=== PATIENT | male | born 1935 | race African-American/Black ===

== ENCOUNTER 2018-01-21 20:54 | Emergency (ER) | payer MEDICARE, OTHER ==
[~2018-01-21] VITALS: Ht 177.8 cm; Wt 76.2 kg
--- NOTE | 2018-01-21 21:42 | PHYS DOC ---
Adult General Chief Complaint Chief Complaint: MECHANICAL FALL HPI HPI 82 y/o male presents to ER via POV for evaluation after a fall today. 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 Patient denies any loss of consciousness. Patient has complaints of left side forehead pain with abrasions. Patient reports in the past couple of hours he has also developed some left side rib/muscle ache which increases with repositioning of lt upper extremity. Pt denies having any symptoms prior to fall. He reports he has history of spinal stenosis which cause weakness into his left side which led to him slipping. Patient denies any chest pain, shortness of air, cough, vomiting, or dizziness. Patient's Cely is at bedside denies patient with any confusion or change in mental status. He reports she took 2 Advil at 4:30 PM which has improved his pain. Patient reports he takes 81 mg aspirin 5 times per week denying any aspirin today. Patient denies any neck, back, or abdominal pain. She denies any injury to bilateral lower extremities. Patient reports he has eaten since the fall denying any vomiting. Review of Systems Review of Systems Constitutional: Denies lethargy or weakness Eyes: Denies change in visual acuity, photosensitivity, or eye pain [] HENT: Reports lt forehead injury- denies nosebleed Respiratory: Denies cough or shortness of breath [] Cardiovascular: Denies chest pain. Reports left lateral rib and muscle pain which increases with repositioning/ROM of left upper extremity GI: Denies abdominal pain, nausea, vomiting, bloody stools or diarrhea [] : Denies dysuria or hematuria. Denies incontinence of bowel or bladder Musculoskeletal: Denies back/neck pain or joint pain [] Integument: Reports abrasion left forehead with swelling at site Neurologic: Denies dizziness/lightheadedness or sensory changes. Patient reports history of left-sided weakness from spinal stenosis denying any acute change All other systems were reviewed and found to be within normal limits, except as documented in this note. Allergies Allergies Allergies Coded Allergies Type Severity Reaction Last Updated Verified No Known Drug Allergies 01/21/18 No Physical Exam Physical Exam Constitutional: Well developed, well nourished, no acute distress, non-toxic appearance. Steady gait. Clear speech. Managed Care Specialist equal bilateral HENT: Normocephalic, abrasion lt forehead above brow line- swelling at site with no active bleeding/ecchymosis, bilateral ears normal, oropharynx moist, nose normal. No sinus crepitus. Pt had reported he had tooth next to his lt front tooth was broke partially during fall- he denies oral pain. On exam no other loose teeth or other oral injury. No bleeding/swelling at site of fx'd tooth and pt denies tenderness on palp. Eyes: 3mm PERRLA, EOMI- no eye pain with movements, no nystagmus, conjunctiva normal, no discharge. [] Neck: Normal range of motion, no tenderness-no midline cervical tenderness or palpable deformity, supple, no stridor. Trachea midline Cardiovascular:Heart rate regular rhythm, no murmur [] Lungs & Thorax: Bilateral breath sounds clear to auscultation. Respirations equal and nonlabored. Tender to palp. lt lateral ribs just below axillary- no visible injury or palpable deformity/crepitus Abdomen: Bowel sounds normal, soft-or distention or rigidity, no tenderness, no masses, no pulsatile masses. [] Skin: Warm, dry, no erythema, no rash. [] Back: No tenderness-no midline spinal tenderness or palpable deformity. No visible injury on back. No CVA tenderness. [] Extremities: No tenderness, no cyanosis, no clubbing, ROM intact, no edema. [] Neurologic: Alert and oriented X 3, normal motor function, normal sensory function, no focal deficits noted. [] Psychologic: Affect normal, judgement normal, mood normal. [] Current Patient Data Vital Signs Vital Signs Date Time Temp Pulse Resp B/P (MAP) Pulse Ox O2 Delivery O2 Flow Rate FiO2 01/21/18 23:30 81 18 99 01/21/18 21:27 98.1 184/88 (120) Room Air 98.1 EKG EKG EKG obtained 01/21/18 at [address] Torres Sinus rhythm Rate 73 No STEMI Radiology/Procedures Radiology/Procedures PROCEDURE: CT HEAD AND CERVICAL SPINE WO CT HEAD AND CERVICAL SPINE WO Date: 01/21/2018 9:33 PM Clinical Indication: fall hitting left forehead Comparison: None. Technique: 5 mm axial tomographic images were obtained of the head without contrast. These were viewed on brain and bone windows. Noncontrast CT of the cervical spine was performed. Sagittal and coronal reformats were performed and evaluated. HEAD FINDINGS: Moderate generalized cerebral and cerebellar volume loss. Mild nonspecific periventricular hypoattenuation, most commonly seen with chronic small vessel ischemic disease. No intra- or extra-axial mass or fluid collection. No acute hemorrhage. The ventricles are normal in size, shape, and morphology. The isaac-white matter junction is normal. The basilar cisterns are patent. Left frontal scalp small hematoma. Mild left maxillary sinus mucosal thickening. The visualized portions of the orbits and globes are normal. The mastoid air cells are clear. No aggressive osseous lesion or fracture. CERVICAL SPINE FINDINGS: The cervical spine is normally aligned. No acute fracture. Incomplete C1 posterior arch, likely congenital. No aggressive lytic or blastic osseous lesions. Moderate multilevel degenerative disc space height loss. Multilevel at least moderate spinal canal stenosis secondary to disc protrusions and marginal osteophytes. Congenitally small cervical spinal canal. Multilevel severe neuroforaminal narrowing secondary to uncovertebral arthrosis. Multilevel moderate facet arthrosis. The thyroid gland is normal. No cervical lymphadenopathy. Bilateral carotid atherosclerosis. The visualized aerodigestive tract is normal. The visualized portions of the lungs are clear. IMPRESSION: 1. No acute intracranial process. 2. Moderate cerebral volume loss. Mild chronic small vessel ischemic disease. 3. No acute fracture or dislocation. 4. Moderate to severe degenerative cervical spondylosis. 5. Mild left maxillary mucosal thickening. 6. Left frontal scalp small hematoma. No underlying osseous abnormality. PQRS Compliance Statement: One or more of the following individualized dose reduction techniques were utilized for this examination: 1. Automated exposure control 2. Adjustment of the mA and/or kV according to patient size 3. Use of iterative reconstruction technique Electronically signed by: Jian Jalloh MD (01/21/2018 11:36 PM) [facility] DICTATED and SIGNED BY: JIAN JALLOH MD DATE: 01/21/18 8141 Course & Med Decision Making Course & Med Decision Making Pertinent Imaging studies reviewed. (See chart for details) Pt has remained A&Ox3 while in ER without c/o dizziness/lightheadedness. CT results were discussed with him and his - no acute findings on head/Cspine. Chest xray with no acute findings. Discussed head injury precautions. Discussed tylenol prn as directed for pain. With lt side rib/muscle pain discussed plan for incentive spirometer with education on home use. During discussion pt is in no visible distress with equal/nonlabored resp- he denies any SOA. Education provided on signs and symptoms to return to ER for and discharge instructions were discussed. Pt's case was discussed with Dr. Torres. Domonique Disclaimer Domonique Disclaimer This electronic medical record was generated, in whole or in part, using a voice recognition dictation system. Departure Departure Impression: Primary Impression: Fall Additional Impressions: Head injury Abrasion Chest wall muscle strain Disposition: HOME, SELF-CARE Condition: STABLE Referrals: UNKNOWN PCP NAME (PCP) Patient Instructions: Abrasions, Chest Wall Pain, Fall Prevention and Home Safety, Head Injury, Adult, Incentive Spirometer, Muscle Strain Additional Instructions: Tylenol as needed for pain control as directed on container. Ice pack to forehead every 3-4 hours for 20-30 minutes at a time- avoid ice contact directly to skin. Incentive spirometer daily 3-4 times a day as directed. Problem Qualifiers KIRK THAKKAR APRN Jan 21, 2018 21:42
[2018-01-21 23:30] VITALS: BP 145/88
--- NOTE | 2018-01-21 23:39 | RAD ---
CT HEAD AND CERVICAL SPINE WO Date: 01/21/2018 9:33 PM Clinical Indication: fall hitting left forehead Comparison: None. Technique: 5 mm axial tomographic images were obtained of the head without contrast. These were viewed on brain and bone windows. Noncontrast CT of the cervical spine was performed. Sagittal and coronal reformats were performed and evaluated. HEAD FINDINGS: Moderate generalized cerebral and cerebellar volume loss. Mild nonspecific periventricular hypoattenuation, most commonly seen with chronic small vessel ischemic disease. No intra- or extra-axial mass or fluid collection. No acute hemorrhage. The ventricles are normal in size, shape, and morphology. The isaac-white matter junction is normal. The basilar cisterns are patent. Left frontal scalp small hematoma. Mild left maxillary sinus mucosal thickening. The visualized portions of the orbits and globes are normal. The mastoid air cells are clear. No aggressive osseous lesion or fracture. CERVICAL SPINE FINDINGS: The cervical spine is normally aligned. No acute fracture. Incomplete C1 posterior arch, likely congenital. No aggressive lytic or blastic osseous lesions. Moderate multilevel degenerative disc space height loss. Multilevel at least moderate spinal canal stenosis secondary to disc protrusions and marginal osteophytes. Congenitally small cervical spinal canal. Multilevel severe neuroforaminal narrowing secondary to uncovertebral arthrosis. Multilevel moderate facet arthrosis. The thyroid gland is normal. No cervical lymphadenopathy. Bilateral carotid atherosclerosis. The visualized aerodigestive tract is normal. The visualized portions of the lungs are clear. IMPRESSION: 1. No acute intracranial process. 2. Moderate cerebral volume loss. Mild chronic small vessel ischemic disease. 3. No acute fracture or dislocation. 4. Moderate to severe degenerative cervical spondylosis. 5. Mild left maxillary mucosal thickening. 6. Left frontal scalp small hematoma. No underlying osseous abnormality. PQRS Compliance Statement: One or more of the following individualized dose reduction techniques were utilized for this examination: 1. Automated exposure control 2. Adjustment of the mA and/or kV according to patient size 3. Use of iterative reconstruction technique Electronically signed by: Jian Jalloh MD (01/21/2018 11:36 PM) [facility]
--- NOTE | 2018-01-22 08:49 | RAD ---
Two-view chest 01/21/2018 CLINICAL INDICATION: Fall with left forearm pain. COMPARISON: None. FINDINGS: Cardiac and mediastinal silhouettes are unremarkable. No pleural effusion, pneumothorax or focal consolidation. Multilevel thoracic spondylosis. IMPRESSION: No acute cardiopulmonary abnormality. Electronically signed by: Tobias Genao MD (01/22/2018 8:46 AM) [facility]
--- NOTE | 2018-01-22 17:49 | EKG ---
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
== END 2018-01-22 00:34 | disposition home or self-care (01) ==
LOC: ER 20:54
DX: S29.011A Strain of muscle and tendon of front wall of thorax, initial encounter (principal); S00.81XA Abrasion of other part of head, initial encounter; R51 Headache; W17.89XA Other fall from one level to another, initial encounter; Y93.39 Activity, other involving climbing, rappelling and jumping off; Y92.89 Other specified places as the place of occurrence of the external cause; Y99.8 Other external cause status
CPT/HCPCS: 70450; 71046; 72125; 93005; 99284-25